=== PATIENT | male | born 2000 | race African-American/Black ===

== ENCOUNTER 2020-08-26 11:59 | Emergency (ER) | payer OTHER ==
[~2020-08-26] VITALS: Ht 172.7 cm; Wt 96.0 kg
[2020-08-26 12:00] VITALS: BP 139/74
[2020-08-26] MEDS ORDERED: MAPA500C PO (12:11)
== END 2020-08-26 12:44 | disposition home or self-care (01) ==
LOC: M ED 11:59
DX: M75.22 Bicipital tendinitis, left shoulder (principal)